=== PATIENT | female | born 1950 | race Hispanic/Latino ===

== ENCOUNTER 2017-05-29 18:41 | Emergency (ER) | payer OTHER ==
[2017-05-29 22:00] LABS: Bilirubin,Urine NEG (Negative); Blood,Urine NEG (Negative); Ketones,Urine NEG (Negative); Leukocyte Esterase,Urine SM (Negative); Nitrite,Urine NEG (Negative); Protein,Urine <15 mg/dL mg/dL (Negative); RBC,Urine < 1.0 /HPF (0.0-6.0); Urobilinogen,Urine < 2.0 mg/dL (<2.0)
[2017-05-30] MEDS ORDERED: MORPHINE IM ONE (02:53)
[2017-05-30] MEDS ORDERED: ZOFRAN IM ONE (02:53)
--- NOTE | 2017-05-30 02:59 | Emergency Department Report ---
ED Abdominal Pain HPI - General Chief Complaint: Back Pain/Injury Stated Complaint: RIGHT FLANK PAIN Time Seen by Provider: 05/30/17 02:48 Source: patient Mode of arrival: Ambulatory Limitations: Physical Limitation - History of Present Illness Initial Comments: Patient is 66 years old female complaining of right flank pain has been going on for several weeks, it just got worse last night. Patient denied any nausea or vomiting and no urinary symptoms. Patient denied any fever. No recent injury. MD Complaint: flank pain -: days(s) Location: R flank Radiation: none Migration to: no migration Severity scale (0 -10): 10 Quality: sharp Associated Symptoms: denies other symptoms - Related Data Allergies Allergy/AdvReac Type Severity Reaction Status Date / Time cefuroxime Allergy Swelling Verified 05/29/17 19:25 erythromycin base Allergy Unknown Verified 05/29/17 19:25 [From E-Mycin] iv dye Allergy Rash Uncoded 05/29/17 19:25 ED Review of Systems ROS: Stated complaint: RIGHT FLANK PAIN Other details as noted in HPI Comment: All other systems reviewed and negative Constitutional: denies: chills, fever ENT: denies: throat pain Cardiovascular: denies: chest pain, palpitations Gastrointestinal: abdominal pain. denies: nausea, vomiting, diarrhea, constipation, hematemesis, melena, hematochezia Genitourinary: denies: urgency, dysuria, frequency, hematuria, abnormal menses Musculoskeletal: back pain Neurological: denies: headache ED Past Medical Hx - Past Medical History Previous Medical History?: Yes Hx Hypertension: Yes Hx Arthritis: Yes Hx COPD: Yes Additional medical history: hypothyroid. enlarged heart. kidney problems - Surgical History Past Surgical History?: Yes Hx Cholecystectomy: Yes Additional Surgical History: back. csection x2. hyster. foot. 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 Absent: tenderness, meningismus, lymphadenopathy - Respiratory Respiratory exam: Present: normal lung sounds bilaterally. Absent: respiratory distress, wheezes, rales, rhonchi, stridor, chest wall tenderness, accessory muscle use, decreased breath sounds, prolonged expiratory - Cardiovascular Cardiovascular Exam: Present: regular rate, normal rhythm, normal heart sounds - GI/Abdominal GI/Abdominal exam: Present: soft, normal bowel sounds. Absent: distended, tenderness, guarding, rebound, rigid, organomegaly, mass, bruit, pulsatile mass , hernia - Extremities Exam Extremities exam: Present: normal inspection, full ROM, normal capillary refill. Absent: tenderness - Back Exam Back exam: Present: full ROM, CVA tenderness (R). Absent: tenderness, CVA tenderness (L), muscle spasm, paraspinal tenderness - Neurological Exam Neurological exam: Present: alert, oriented X3, CN II-XII intact, normal gait - Skin Skin exam: Present: warm, intact, normal color ED Course Vital Signs 05/29/17 05/29/17 05/30/17 19:15 19:18 00:46 Temperature 97.8 F 97.8 F 98.4 F Pulse Rate 87 82 Respiratory 18 18 18 Rate Blood Pressure 133/79 133/79 132/80 Blood Pressure [Left] O2 Sat by Pulse 95 95 Oximetry 05/30/17 01:58 Temperature 98.1 F Pulse Rate 81 Respiratory 18 Rate Blood Pressure Blood Pressure 159/84 [Left] O2 Sat by Pulse 97 Oximetry ED Medical Decision Making - Radiology Data Radiology results: report reviewed CT abdomen and pelvis showed no acute abnormalities. Critical care attestation.: If time is entered above; I have spent that time in minutes in the direct care of this critically ill patient, excluding procedure time. ED Disposition Clinical Impression: Right flank pain Disposition: DC-01 TO HOME OR SELFCARE Is pt being admited?: No Condition: Stable Instructions: Flank Pain (ED), Chronic Back Pain (ED) Referrals: PRIMARY CARE, [Primary Care Provider] - 3-5 Days
--- NOTE | 2017-05-30 04:32 | Cat Scan Report ---
FINAL REPORT EXAM: CT ABDOMEN PELVIS WO CON HISTORY: RT FLANK PAIN TECHNIQUE: Routine axial imaging was obtained of the abdomen and pelvis without oral or IV contrast. Sagittal and coronal reconstructions were reviewed. FINDINGS: The lung bases reveal chronic changes. Pleural fluid is not seen. The liver is normal size and reveals diminished attenuation compatible with hepatic steatosis. The gallbladder has been removed. The biliary tree appears normal. The pancreas, spleen, and adrenal glands appear normal. The kidneys reveal small peripelvic cysts bilaterally. There is no evidence of stones or hydronephrosis. The bowel loops are normal in caliber and course. The appendix appears normal. There is no evidence of free fluid or adenopathy. There is an umbilical hernia measuring 4 cm in dimension containing omental fat. In the pelvis the uterus has been removed. The bladder appears normal. The skeletal structures reveal arthritic changes both hips as well as within lumbar spine. IMPRESSION: No evidence of renal stones or hydronephrosis. Benign peripelvic cysts in both kidneys. Cholecystectomy. Normal appendix. Umbilical hernia containing omental fat.
[2017-05-30 05:59] VITALS: BP 142/84
== END 2017-05-30 05:59 | disposition home or self-care (01) ==
LOC: ED 18:41
DX: R10.9 Unspecified abdominal pain (principal); I10 Essential (primary) hypertension; M19.90 Unspecified osteoarthritis, unspecified site; J44.9 Chronic obstructive pulmonary disease, unspecified; E03.9 Hypothyroidism, unspecified; Z90.49 Acquired absence of other specified parts of digestive tract; Z88.1 Allergy status to other antibiotic agents; Z88.8 Allergy status to other drugs, medicaments and biological substances
CPT/HCPCS: 74176; 81001; 96372; 99284; J2270; J2405